=== PATIENT | male | born 1955 | race Native Hawaiian/Other Pacific Islander ===

== ENCOUNTER 2017-07-30 10:51 | Observation (INO) | payer OTHER ==
[~2017-07-30] VITALS: Ht 165.1 cm; Wt 84.6 kg
[2017-07-30 13:44] LABS: POTASSIUM 3.6 mmol/L (3.6-5.2)
[2017-07-30 13:46] LABS: PLATELET COUNT 261 K/uL (142-355)
[2017-07-30 18:04] VITALS: BP 146/58; TEMP 98.6; Ht 165.1 cm; Wt 84.6 kg
[2017-07-30 20:00] VITALS: TEMP 98.3
[2017-07-31] VITALS: BP 181/76; TEMP 98.9
[2017-07-31 04:00] VITALS: BP 121/71; TEMP 99
[2017-07-31 05:20] LABS: PLATELET COUNT 241 K/uL (142-355)
[2017-07-31 05:41] LABS: POTASSIUM 4.6 mmol/L (3.6-5.2)
[2017-07-31 08:00] VITALS: BP 140/72; TEMP 98.7
[2017-07-31 12:00] VITALS: BP 154/73; TEMP 97.8
--- NOTE | 2017-07-31 14:35 | NUR ---
21G IV TO THE LEFT FOREARM D/C AT THIS TIME. DISCHARGE INSTRUCTIONS WERE GIVEN AT THIS TIME AND PT VERBALIZED UNDERSTANDING. PT D/C VIA WHEELCHAIR AT THIS TIME. WILL CONTINUE TO MONITOR.
== END 2017-07-31 14:50 | disposition home or self-care (01) ==
LOC: MED/SURG 10:51
PROVIDERS: ADMIT Family Medicine
DX: J18.8 Other pneumonia, unspecified organism (principal); D50.8 Other iron deficiency anemias
CPT/HCPCS: 80053; 82607; 82728; 82805; 83540; 83550; 85027; 87040; 87070; 87205; 87804; 93005; 94640; 94664; 94668; 94760; 96367; 96374; 96375; 99220; G0378; G0379; J2920

== ENCOUNTER 2019-05-13 07:54 | Outpatient (CLI) | payer BC ==
[~2019-05-13] VITALS: Ht 165.1 cm; Wt 90.7 kg
== END 2019-05-13 22:25 | disposition home or self-care (01) ==
LOC: NM 07:54
DX: R06.09 Other forms of dyspnea (principal)
CPT/HCPCS: A9500; J2785

== ENCOUNTER 2020-04-15 01:57 | Inpatient (IN) | payer BC, OTHER ==
[2020-04-15] VITALS (11 sets, daily range): BP systolic 127–165; BP diastolic 68–89; TEMP 98.3–102.5; Ht 165.1 cm; Wt 96.2 kg
[~2020-04-15] VITALS: Ht 165.1 cm; Wt 96.2 kg
[2020-04-15 02:59] LABS: POTASSIUM 3.7 mmol/L (3.6-5.2)
[2020-04-15 03:07] LABS: PLATELET COUNT 189 K/uL (142-355)
[2020-04-15 09:16] LABS: POTASSIUM 3.9 mmol/L (3.6-5.2)
[2020-04-15 09:48] LABS: PLATELET COUNT 146 K/uL (142-355)
[2020-04-15] MEDS ORDERED: COZAAR25 MG PO (17:36)
[2020-04-15] MEDS ORDERED: LIPITOR40 MG PO (17:37)
[2020-04-15] MEDS ORDERED: ALLERGY10 M1 PO (17:38)
[2020-04-15] MEDS ORDERED: OMEPRAZOLE10 MG PO (17:39)
[2020-04-15] MEDS ORDERED: ASPIRIN ADULT325 MG PO (17:42)
[2020-04-16] VITALS: BP 144/82; TEMP 98.8
[2020-04-16 04:02] VITALS: BP 146/90; TEMP 98.7
[2020-04-16 05:44] LABS: PLATELET COUNT 151 K/uL (142-355)
[2020-04-16 05:45] LABS: POTASSIUM 5.2 mmol/L (3.6-5.2)
[2020-04-16 12:00] VITALS: BP 148/97; TEMP 98.7
[2020-04-16 16:00] VITALS: BP 142/81; TEMP 98.7
[2020-04-16 20:00] VITALS: BP 162/98; TEMP 99.2
[2020-04-16 23:48] VITALS: BP 171/87; TEMP 98.2
[2020-04-17 04:00] VITALS: BP 151/91; TEMP 98.5
[2020-04-17 05:37] LABS: POTASSIUM 4.8 mmol/L (3.6-5.2)
[2020-04-17 06:23] LABS: PLATELET COUNT 150 K/uL (142-355)
[2020-04-17 08:00] VITALS: BP 146/85; TEMP 98.3
[2020-04-17 12:00] VITALS: BP 139/88; TEMP 98.5
[2020-04-17 16:00] VITALS: BP 137/90; TEMP 98.4
[2020-04-17 20:00] VITALS: BP 138/84; TEMP 98.8
[2020-04-18] VITALS (7 sets, daily range): BP systolic 118–151; BP diastolic 76–90; TEMP 97.9–100
[2020-04-18 06:05] LABS: PLATELET COUNT 163 K/uL (142-355)
[2020-04-18 07:04] LABS: POTASSIUM 4.7 mmol/L (3.6-5.2)
[2020-04-19] VITALS: BP 137/84; TEMP 98.6
[2020-04-19 04:00] VITALS: BP 162/96; TEMP 98.5
[2020-04-19 05:35] LABS: PLATELET COUNT 162 K/uL (142-355)
[2020-04-19 05:48] LABS: POTASSIUM 4.4 mmol/L (3.6-5.2)
[2020-04-19 08:00] VITALS: BP 149/86; TEMP 98
[2020-04-19 12:00] VITALS: BP 134/77; TEMP 98.3
[2020-04-19 16:00] VITALS: BP 133/73; TEMP 98.1
== END 2020-04-19 19:18 | disposition home or self-care (01) | DRG 177 ==
LOC: ED 01:57 → MED/SURG 04:15
PROVIDERS: Internal Medicine Endocrinology, Diabetes & Metabolism; ADMIT Family Medicine
DX: U07.1 COVID-19 (principal); J96.01 Acute respiratory failure with hypoxia; J18.8 Other pneumonia, unspecified organism; I10 Essential (primary) hypertension; E78.49 Other hyperlipidemia; K21.9 Gastro-esophageal reflux disease without esophagitis
CPT/HCPCS: 36415; 80053; 82728; 85007; 85027; 85379; 87635; 93005; 94760; 96365; 96375; 99284; J0456; J0696; J1100; J2930; U0003

== ENCOUNTER 2020-10-27 09:52 | Outpatient (CLI) | payer BC ==
[~2020-10-27 09:52] MED LIST: ALLERGY10 M1 PO; ASPIRIN ADULT325 MG PO; COZAAR25 MG PO; LIPITOR40 MG PO; OMEPRAZOLE10 MG PO
== END 2020-10-27 19:19 | disposition home or self-care (01) ==
LOC: RAD 09:52
PROVIDERS: ATTEND Nurse Practitioner Family
DX: M54.17 Radiculopathy, lumbosacral region (principal)

== ENCOUNTER 2020-12-06 08:38 | Outpatient (CLI) | payer BC | END 2020-12-06 19:54 | disposition home or self-care (01) | LOC: MRI 08:38 | PROVIDERS: ATTEND Nurse Practitioner Family | DX: M47.896 Other spondylosis, lumbar region (principal) ==

== ENCOUNTER 2020-12-21 08:17 | Outpatient (CLI) | payer BC | END 2020-12-21 23:59 | disposition home or self-care (01) | LOC: US 08:17 | PROVIDERS: ATTEND Nurse Practitioner Family | DX: R74.01 Elevation of levels of liver transaminase levels (principal) ==

== ENCOUNTER 2021-02-04 08:41 | Outpatient (CLI) | payer BC | END 2021-02-04 23:05 | disposition home or self-care (01) | LOC: MRI 08:41 | PROVIDERS: ATTEND Neurological Surgery | DX: M48.02 Spinal stenosis, cervical region (principal) ==

== ENCOUNTER 2021-08-25 10:07 | Outpatient (CLI) | payer BC, OTHER | END 2021-08-25 19:10 | disposition home or self-care (01) | LOC: CT 10:07 | PROVIDERS: ATTEND Physician Assistant Medical | DX: M54.16 Radiculopathy, lumbar region (principal) ==

== ENCOUNTER 2021-09-26 10:00 | Outpatient (CLI) | payer BC, OTHER | END 2021-09-26 19:09 | disposition home or self-care (01) | LOC: US 10:00 | PROVIDERS: ATTEND Family Medicine | DX: Z13.6 Encounter for screening for cardiovascular disorders (principal); Z87.891 Personal history of nicotine dependence; Z09 Encounter for follow-up examination after completed treatment for conditions other than malignant neoplasm ==

== ENCOUNTER 2022-01-09 11:26 | Outpatient (CLI) | payer BC, OTHER ==
[2022-01-09 12:29] LABS: POTASSIUM 4.4 mmol/L (3.6-5.2)
[2022-01-09 12:35] LABS: PLATELET COUNT 185 K/uL (142-355)
== END 2022-01-09 18:50 | disposition home or self-care (01) ==
LOC: RAD 11:26
PROVIDERS: ATTEND Nurse Practitioner Family
DX: Z01.818 Encounter for other preprocedural examination (principal)
CPT/HCPCS: 36415; 80053; 81002; 85027; 93005